=== PATIENT | female | born 1975 | race Caucasian/White ===

== ENCOUNTER 2017-03-12 10:48 | Emergency (ER) | payer SELFPAY ==
[2017-03-12 10:54] VITALS: TEMP 98.1
[2017-03-12] MEDS ORDERED: DIPH,PERTUS(ACELL)TETVAC-LF 0.5 ML VIAL IM ONE (12:14)
[2017-03-12] MEDS ORDERED: LIDOCAINE/EPINEPHR/TETRACAINE 5 ML BOTTLE TOPICAL ONE (12:14)
--- NOTE | 2017-03-12 12:17 | ED ---
Wound/Laceration HPI - General Chief Complaint: Wound/Laceration Stated Complaint: HEAD INJURY, LACERATION Time Seen by Provider: 03/12/17 11:59 Source: patient, RN notes reviewed Mode of arrival: wheelchair Limitations: no limitations - History of Present Illness Initial Comments: Patient is 41-year-old female presents to the emergency room for evaluation of scalp laceration. Patient states that she was moving tarp outside piece of wood fell and hit her on the top of the head. Patient denies loss of consciousness. Patient denies headache or dizziness. Patient denies changes in vision. Patient denies ear pain or ringing in ears. Patient denies neck pain. Patient denies tingling in her fingers and toes. Patient states she has laceration on top of her head. Patient states she does not remember when her last tetanus vaccine was given. Patient denies taking any blood thinners. Patient denies any other symptoms or complaints. Patient denies taking blood thinners. - Related Data Home Medications Medication Instructions Recorded Confirmed Dextroamphetamine/Amphetamine 30 mg PO BID 03/12/17 03/12/17 [Adderall] Allergies Allergy/AdvReac Type Severity Reaction Status Date / Time Penicillins Allergy Severe Rash/Hives Verified 03/12/17 10:54 Review of Systems ROS Statement: Those systems with pertinent positive or pertinent negative responses have been documented in the HPI. ROS Other: All systems not noted in ROS Statement are negative. Past Medical History Additional Past Medical History / Comment(s): migraines, difficult periods History of Any Multi-Drug Resistant Organisms: None Reported Past Surgical History: Tubal Ligation Additional Past Surgical History / Comment(s): hiatal hernia repair Past Anesthesia/Blood Transfusion Reactions: No Reported Reaction Past Psychological History: No Psychological Hx Reported Smoking Status: Current every day smoker Past Alcohol Use History: None Reported Additional Past Alcohol Use History / Comment(s): STARTED SMOKING AGE 14. QUIT SMOKING OCT 2014 Past Drug Use History: None Reported - Past Family History Mother Family Medical History: No Reported History General Exam - General Exam Comments Initial Comments: Sitting in exam room, no distress. Limitations: no limitations General appearance: alert, in no apparent distress Expanded Head exam: Present: laceration (3 cm laceration on the right frontol/parietal portion of the scalp) Eye exam: Present: normal appearance, PERRL, EOMI Pupils: Present: normal accommodation ENT exam: Present: normal exam Neck exam: Present: normal inspection Respiratory exam: Absent: respiratory distress Extremities exam: Present: normal inspection Back exam: Present: normal inspection Neurological exam: Present: alert, oriented X3, CN II-XII intact, normal gait Psychiatric exam: Present: normal affect, normal mood Skin exam: Present: warm, dry. Absent: rash Course Vital Signs 03/12/17 03/12/17 10:51 13:02 Temperature 98.1 F Pulse Rate 104 H 90 Respiratory 20 16 Rate Blood Pressure 133/74 132/74 O2 Sat by Pulse 98 99 Oximetry Procedures - Laceration Laceration #1 Consent Obtained: verbal consent Indication: laceration Site: scalp Size (cm): 3 Description: linear Depth: simple, single layer Size of Sutures: other (Oglesby) Number of Sutures: 3 Patient Tolerated Procedure: well, no complications Medical Decision Making - Medical Decision Making Patient is a 41-year-old female presents to the emergency room for evaluation of scalp laceration. Patient has no neuro deficits. Laceration irrigated. Patient updated on tetanus vaccine. Oglesby placed in laceration area. Patient states she understands everything that was discussed with her. Return parameters discussed. Case discussed Dr. Liz. Disposition Clinical Impression: Scalp laceration Disposition: HOME SELF-CARE Condition: Good Instructions: Laceration (ED), Staple Care (ED) Additional Instructions: Tylenol or Motrin as needed for pain. Please return in 10 days for staple removal. Please follow up with primary care provider in 1-2 days. If any new symptom arises or symptoms worsen, return to ER as soon as possible. Referrals: Jaylon Francisco DO [Primary Care Provider] - 1-2 days Time of Disposition: 12:55
[2017-03-12 13:05] VITALS: BP 132/74; PULSE 90; RESP 16
== END 2017-03-12 13:02 | disposition home or self-care (01) ==
LOC: EC 10:48
DX: S01.01XA Laceration without foreign body of scalp, initial encounter (principal); Z23 Encounter for immunization; F17.200 Nicotine dependence, unspecified, uncomplicated; Z79.899 Other long term (current) drug therapy; Z88.0 Allergy status to penicillin; W20.8XXA Other cause of strike by thrown, projected or falling object, initial encounter; Y92.009 Unspecified place in unspecified non-institutional (private) residence as the place of occurrence of the external cause
CPT/HCPCS: 12002; 90471; 90715; 99283

== ENCOUNTER → 2017-05-10 | Outpatient (CLI) | payer OTHER ==
--- NOTE | 2017-05-10 13:16 | MR ---
EXAMINATION TYPE: MR lumbar spine wo con DATE OF EXAM: 05/10/2017 COMPARISON: NONE HISTORY: Lumbar spasms and limited range of motion per order. Back pain for 6 months going down both legs per patient. TECHNIQUE: Multiplanar, multisequence imaging of the lumbar spine is performed without IV contrast. FINDINGS: Sagittal images of the lumbar spine show vertebral body heights and alignment to appear sat isfactory. There is disc desiccation L5-S1 level otherwise the intervertebral discs demonstrate willard l heights and hydration. No suspicious posterior disc herniations are seen on sagittal images The co nus medullaris is normal in position and signal ending at inferior L1 level. The bone marrow signal intensity is within normal limits. Minimal multilevel anterior spurring is present. Axial images show mild to moderate facet arthropathy bilaterally L4-L5 and L5-S1 level. Spinal canal is preserved and bilateral neural foramina are patent. Remainder lumbar spine is unremarkable. No bere picious retroperitoneal findings are seen. IMPRESSION: Some multilevel degenerative changes in lumbar spine as detailed above, no significant di sc herniation is seen to account for patient's bilateral radiculopathy type symptoms however.
== END | disposition home or self-care (01) ==
LOC: RADMRIMAIN 12:26
PROVIDERS: ATTEND Family Medicine
DX: M47.816 Spondylosis without myelopathy or radiculopathy, lumbar region (principal); M26.52 Limited mandibular range of motion
CPT/HCPCS: 72148

== ENCOUNTER → 2017-05-23 | Outpatient (CLI) | payer OTHER ==
--- NOTE | 2017-05-23 08:24 | MR ---
EXAMINATION TYPE: MR cervical spine wo con DATE OF EXAM: 05/23/2017 COMPARISON: NONE HISTORY: neck pain csp radiculopathy TECHNIQUE: Multiplanar, multisequence images of the cervical spine were acquired. C2-C3: No evidence for degenerative disc disease. No disc bulge/herniation or protrusion. No Canal stenosis. Foramina are patent bilaterally. C3-C4: No evidence for degenerative disc disease. No disc bulge/herniation or protrusion. No Canal stenosis. Foramina are patent bilaterally and only mildly narrowed. C4-C5: No evidence for degenerative disc disease. No disc bulge/herniation or protrusion. No Canal stenosis. Foramina are patent bilaterally. C5-C6: There is a right posterior paracentral subligamentous disc herniation causing mass effect on t he cervical cord. No significant foraminal encroachment. Mild central canal stenosis. C6-C7: Right posterior paracentral subligamentous disc herniation causes mass effect on the cervical cord. Smaller component is present in the left paracentral location also contacting the cervical cord . No definite foraminal encroachment. C7-T1: No evidence for degenerative disc disease. No disc bulge/herniation or protrusion. No Canal stenosis. Foramina are patent bilaterally. Cervical segments are intact. There is normal alignment. Cervical spinal cord is of normal signal. Craniovertebral junction relationships are within normal limits. IMPRESSION: Degenerative disc disease, disc herniations at 2 levels as described.
== END | disposition home or self-care (01) ==
LOC: RADMRIMAIN 07:33
PROVIDERS: ATTEND Family Medicine
DX: M50.20 Other cervical disc displacement, unspecified cervical region (principal); M50.30 Other cervical disc degeneration, unspecified cervical region
CPT/HCPCS: 72141

== ENCOUNTER 2018-06-16 20:09 | Emergency (ER) | payer OTHER ==
[2018-06-16] MEDS ORDERED: SODIUM CHLORIDE 0.9% 1,000 ML IV ONE ×2 (21:46)
--- NOTE | 2018-06-16 21:46 | ED ---
General Adult HPI - General Chief complaint: Dizziness Stated complaint: Fever/Dizzy Time Seen by Provider: 06/16/18 21:35 Source: patient Mode of arrival: wheelchair Limitations: no limitations - History of Present Illness Initial comments: Angela is a 42-year-old female who presents to the emergency department today for evaluation of multiple complaints. Patient reports that for the past 4 days she's had intermittent low-grade fevers, subjective fevers, chills, nausea , decreased by mouth intake and today developed light headedness. She reports that throughout the week her temperature has been between 99 and 100 , she's been treating this with by mouth ibuprofen and Tylenol with minimal improvement. She reports that yesterday she did not have a fever but today her fever spiked to 103.0 which is the highest it has ever been. Ibuprofen home and saw care at a urgent care where she was given a dose of Tylenol prior to being transferred to the ER for further evaluation. The patient reports that she's been feeling nauseated and had no appetite for the past 4 days, she states she believes she's lost approximately 10-15 pounds due to this. She reports that she's been attempting to drink plenty of water but has not been eating solid foods. She reports that due to a previous Dorita procedure she cannot vomit but has felt persistently nauseated. She has had some diarrhea but no constipation. No abdominal pain. She does report some dysuria and was told that the urgent care that she does have a urinary tract infection and is very dehydrated. Patient reports that today she was walking up her stairs when she began to feel very lightheaded and felt unsafe walking. She felt better when she laid down. It was at that time that she decided to seek care at the urgent care. Vertiginous symptoms, any room spinning around her, any tinnitus or hearing loss. She's never had a history of vertigo in the past. - Related Data Home Medications Medication Instructions Recorded Confirmed Dextroamphetamine/Amphetamine 30 mg PO BID 03/12/17 03/12/17 [Adderall] Previous Rx's Medication Instructions Recorded Sulfamethox-Tmp 800-160Mg [Bactrim 1 tab PO Q12HR 7 Days #14 tab 06/17/18 DS 800-160 mg] Allergies Allergy/AdvReac Type Severity Reaction Status Date / Time Penicillins Allergy Severe Rash/Hives Verified 06/16/18 20:49 Review of Systems ROS Statement: Those systems with pertinent positive or pertinent negative responses have been documented in the HPI. ROS Other: All systems not noted in ROS Statement are negative. Past Medical History Past Medical History: No Reported History Additional Past Medical History / Comment(s): migraines, difficult periods, neck pain- bone spurs History of Any Multi-Drug Resistant Organisms: None Reported Past Surgical History: Hernia Repair, Hysterectomy, Tubal Ligation Additional Past Surgical History / Comment(s): hiatal hernia repair Past Anesthesia/Blood Transfusion Reactions: No Reported Reaction Past Psychological History: ADD/ADHD Smoking Status: Never smoker Past Alcohol Use History: Occasional Past Drug Use History: None Reported - Past Family History Mother Family Medical History: No Reported History General Exam Limitations: no limitations General appearance: alert, in no apparent distress Head exam: Present: atraumatic, normocephalic Eye exam: Present: PERRL, EOMI ENT exam: Present: normal exam, mucous membranes moist Neck exam: Present: full ROM Respiratory exam: Absent: respiratory distress Cardiovascular Exam: Present: regular rate, normal rhythm, normal heart sounds. Absent: systolic murmur, diastolic murmur GI/Abdominal exam: Present: soft. Absent: distended Rectal exam: Present: deferred Extremities exam: Present: full ROM, normal capillary refill. Absent: pedal edema Neurological exam: Present: alert, oriented X3 Psychiatric exam: Present: normal affect, normal mood Skin exam: Present: warm, dry, intact Course Vital Signs 06/16/18 06/16/18 20:46 23:55 Temperature 98.6 F Pulse Rate 86 68 Respiratory 18 Rate Blood Pressure 95/69 O2 Sat by Pulse 97 97 Oximetry - Reevaluation(s) Reevaluation #1: reevaluated, feeling much better after IV fluids, potassium is infusing. Patient states that she has a history of low potassium in the past. 06/17/18 01:47 Medical Decision Making - Medical Decision Making The patient was seen and evaluated, history is obtained from the patient and her significant other at the bedside Patient with low-grade fever throughout the week, today experiencing fever of 103 Fahrenheit, lightheadedness, evaluation at outside facility revealed urinary tract infection and dehydration and she was referred to the emergency department for On exam the patient does appear mildly dehydrated, her mucous membranes are moist but tacky, she has a urine sample at bedside which is dark in color Labs and IV fluids were ordered Labs reveal significant hypokalemia, by mouth and IV replacement were ordered Urinalysis consistent with a significant urinary tract infection - IV Rocephin was ordered All results were discussed with the patient, patient reports a history of low potassium in the past, is aware of what foods are high in potassium and that she needs to have them to her diet including but not limited to bananas and sweet potatoes. I advised the patient we will discharge her home on oral act from for treatment of her urinary tract infection this is a different class of medication and the Rocephin she received the IV so the urinary tract infection should be appropriately treated. She needs follow-up with her PCP at the end of the course of antibiotics for repeat urinalysis to ensure complete clearance of the UTI. All questions pertaining to care were answered to the best my ability. Return parameters were discussed and patient was discharged home in stable condition. - Lab Data Result diagrams: 06/16/18 22:14 06/16/18 22:14 Lab Results 06/16/18 06/16/18 06/16/18 Range/Units 22:14 22:14 22:14 WBC 15.3 H (3.8-10.6) k/uL RBC 4.20 (3.80-5.40) m/uL Hgb 12.4 (11.4-16.0) gm/dL Hct 36.9 (34.0-46.0) % MCV 87.9 (80.0-100.0) fL MCH 29.6 (25.0-35.0) pg MCHC 33.6 (31.0-37.0) g/dL RDW 12.9 (11.5-15.5) % Plt Count 284 (150-450) k/uL Neutrophils % 78 % Lymphocytes % 12 % Monocytes % 6 % Eosinophils % 1 % Basophils % 1 % Neutrophils # 11.8 H (1.3-7.7) k/uL Lymphocytes # 1.8 (1.0-4.8) k/uL Monocytes # 0.9 (0-1.0) k/uL Eosinophils # 0.1 (0-0.7) k/uL Basophils # 0.1 (0-0.2) k/uL Sodium 133 L (137-145) mmol/L Potassium 2.3 L* (3.5-5.1) mmol/L Chloride 91 L (98-107) mmol/L Carbon Dioxide 30 (22-30) mmol/L Anion Gap 12 mmol/L BUN 16 (7-17) mg/dL Creatinine 0.90 (0.52-1.04) mg/dL Est GFR (CKD-EPI)AfAm >90 (>60 ml/min/1.73 sqM) Est GFR (CKD-EPI)NonAf 81 (>60 ml/min/1.73 sqM) Glucose 126 H (74-99) mg/dL Calcium 8.6 (8.4-10.2) mg/dL Urine Color Yellow Urine Appearance Cloudy H (Clear) Urine pH 6.0 (5.0-8.0) Ur Specific [place] 1.014 (1.001-1.035) Urine Protein 1+ H (Negative) Urine Glucose (UA) Negative (Negative) Urine Ketones Negative (Negative) Urine Blood Small H (Negative) Urine Nitrite Negative (Negative) Urine Bilirubin Negative (Negative) Urine Urobilinogen <2.0 (<2.0) mg/dL Ur Leukocyte Esterase Large H (Negative) Urine RBC 6 H (0-5) /hpf Urine WBC 79 H (0-5) /hpf Urine WBC Clumps Occasional H (None) /hpf Ur Squamous Epith Cells 17 H (0-4) /hpf Urine Bacteria Moderate H (None) /hpf Hyaline Casts 115 H (0-2) /lpf Urine Mucus Few H (None) /hpf Disposition Clinical Impression: UTI (urinary tract infection), Dehydration, Hypokalemia Disposition: HOME SELF-CARE Condition: Good Instructions: Dehydration (ED), Urinary Tract Infection in Women (ED), Hypokalemia (ED) Prescriptions: Sulfamethox-Tmp 800-160Mg [Bactrim DS 800-160 mg] 1 tab PO Q12HR 7 Days #14 tab Is patient prescribed a controlled substance at d/c from ED?: No Referrals: Jaylon Francisco DO [Primary Care Provider] - 1-2 days Time of Disposition: 01:34
[2018-06-16 22:25] LABS: Basophils # (A) 0.1 k/uL (0-0.2); Basophils % (A) 1 %; Eosinophils # (A) 0.1 k/uL (0-0.7); Eosinophils % (A) 1 %; HCT 36.9 % (34.0-46.0); HGB 12.4 gm/dL (11.4-16.0); Lymphocytes # (A) 1.8 k/uL (1.0-4.8); Lymphocytes % (A) 12 %; MCH 29.6 pg (25.0-35.0); MCHC 33.6 g/dL (31.0-37.0); MCV 87.9 fL (80.0-100.0); Mean Platelet Volume 6.8; Monocytes # (A) 0.9 k/uL (0-1.0); Monocytes % (A) 6 %; Neutrophils # (A) 11.8 k/uL (1.3-7.7); Neutrophils % (A) 78 %; Platelet Count 284 k/uL (150-450); RDW 12.9 % (11.5-15.5); WBC 15.3 k/uL (3.8-10.6)
[2018-06-16 22:43] LABS: Anion Gap 12 mmol/L; Blood Urea Nitrogen 16 mg/dL (7-17); Calcium 8.6 mg/dL (8.4-10.2); Carbon Dioxide 30 mmol/L (22-30); Chloride 91 mmol/L (98-107); Glucose 126 mg/dL (74-99); Sodium 133 mmol/L (137-145)
[2018-06-16 23:07] LABS: Appearance,Urine Cloudy (Clear); Bacteria,Urine Moderate /hpf; Bilirubin,Urine Negative (Negative); Blood,Urine Small (Negative); Color,Urine Yellow; Glucose,Urine (UA) Negative (Negative); Hyaline Casts,Urine 115 /lpf (0-2); Ketones,Urine Negative (Negative); Leukocyte Esterase,Urine Large (Negative); Mucus,Urine Few /hpf; Nitrite,Urine Negative (Negative); Protein,Urine 1+ (Negative); RBC,Urine 6 /hpf (0-5); Specific Gravity,Urine 1.014 (1.001-1.035); Squamous Epithelial Cell,Urine 17 /hpf (0-4); Urobilinogen,Urine <2.0 mg/dL (<2.0); WBC,Urine 79 /hpf (0-5)
[2018-06-16 23:28] LABS: Potassium 2.3 mmol/L (3.5-5.1)
[2018-06-17] MEDS ORDERED: cefTRIAXone IN SWFI 1,000 MG/10 ML SYRINGE IVP STA (00:23)
[2018-06-17] MEDS ORDERED: POTASSIUM BICARBONATE/CIT AC 20 MEQ TABLET.EFF PO ONE (00:24)
[2018-06-17] MEDS ORDERED: POTASSIUM CHLORIDE 10 MEQ in WATER FOR INJECTION 1 100ML.BAG IVPB STA (00:24)
[2018-06-17] MEDS ORDERED: SODIUM CHLORIDE 0.9% 1,000 ML IV SCH (00:30)
[2018-06-17 04:03] VITALS: BP 106/68; PULSE 80; RESP 18; TEMP 97.9
== END 2018-06-17 04:03 | disposition home or self-care (01) ==
LOC: EC 20:09
DX: E87.6 Hypokalemia (principal); N39.0 Urinary tract infection, site not specified; E86.0 Dehydration; R11.0 Nausea; R63.4 Abnormal weight loss; R19.7 Diarrhea, unspecified; F90.9 Attention-deficit hyperactivity disorder, unspecified type; Z79.899 Other long term (current) drug therapy; Z88.0 Allergy status to penicillin
CPT/HCPCS: 36415; 80048; 85025; 81001; 87086; 99284; 96365; 96375; 96361 ×4; J0696; J3480

== ENCOUNTER 2018-08-08 21:57 | Emergency (ER) | payer OTHER ==
[2018-08-08] MEDS ORDERED: HYDROcodone/APAP 7.5-325MG 1 EACH TAB PO ONE (22:45)
[2018-08-08] MEDS ORDERED: DIAZEPAM 2 MG TAB PO STA (22:45)
[2018-08-08] MEDS ORDERED: METHOCARBAMOL 500 MG TAB PO STA (22:45)
[2018-08-08 22:50] LABS: Basophils # (A) 0.1 k/uL (0-0.2); Basophils % (A) 1 %; Eosinophils # (A) 0.2 k/uL (0-0.7); Eosinophils % (A) 2 %; HCT 35.2 % (34.0-46.0); Lymphocytes # (A) 2.8 k/uL (1.0-4.8); Lymphocytes % (A) 24 %; MCH 30.1 pg (25.0-35.0); MCHC 34.2 g/dL (31.0-37.0); Mean Platelet Volume 6.4; Monocytes # (A) 0.7 k/uL (0-1.0); Monocytes % (A) 6 %; Neutrophils # (A) 7.7 k/uL (1.3-7.7); Neutrophils % (A) 67 %; Platelet Count 340 k/uL (150-450); RDW 12.9 % (11.5-15.5); WBC 11.6 k/uL (3.8-10.6)
[2018-08-08 23:03] LABS: ALT 31 U/L (9-52); AST 22 U/L (14-36); Albumin 3.9 g/dL (3.5-5.0); Alkaline Phosphatase 50 U/L (38-126); Anion Gap 8 mmol/L; Blood Urea Nitrogen 9 mg/dL (7-17); Calcium 8.8 mg/dL (8.4-10.2); Carbon Dioxide 28 mmol/L (22-30); Chloride 103 mmol/L (98-107); Glucose 96 mg/dL (74-99); Potassium 3.7 mmol/L (3.5-5.1); Sodium 139 mmol/L (137-145); Total Bilirubin 0.5 mg/dL (0.2-1.3)
--- NOTE | 2018-08-08 23:44 | ED ---
General Adult HPI - General Source: patient, family, RN notes reviewed Mode of arrival: wheelchair Limitations: no limitations <Mike Deal - Last Filed: 08/09/18 00:28> <Rachelle Woodard - Last Filed: 08/09/18 00:40> - General Chief complaint: Extremity Problem,Nontraumatic Stated complaint: Edema Time Seen by Provider: 08/08/18 22:18 - History of Present Illness Initial comments: Patient's a 43-year-old female presented to the emergency room status post neck surgery, 3 days, the chief complaint of bilateral foot swelling. Patient does admit that she's noticed some swelling down to her feet. She states she had a difficult time putting on her slippers today. She states per her discharge instructions she was advised come in the hospital if there was any swelling in her legs. She denies any pain. Denies any injury. She states there is no other symptoms after surgery. Denies any swelling to any other areas. Patient denies any recent fever, chills, shortness of breath, chest pain, back pain, abdominal pain, nausea or vomiting, numbness or tingling, headaches or visual changes, or any other complaints. (Mike Deal) - Related Data Home Medications Medication Instructions Recorded Confirmed Dextroamphetamine/Amphetamine 30 mg PO BID 03/12/17 03/12/17 [Adderall] Previous Rx's Medication Instructions Recorded Sulfamethox-Tmp 800-160Mg [Bactrim 1 tab PO Q12HR 7 Days #14 tab 06/17/18 DS 800-160 mg] Allergies Allergy/AdvReac Type Severity Reaction Status Date / Time Penicillins Allergy Severe Rash/Hives Verified 08/08/18 22:02 Review of Systems ROS Other: All systems not noted in ROS Statement are negative. <Mike Deal - Last Filed: 08/09/18 00:28> ROS Other: All systems not noted in ROS Statement are negative. <Rachelle Woodard - Last Filed: 08/09/18 00:40> ROS Statement: Those systems with pertinent positive or pertinent negative responses have been documented in the HPI. Past Medical History Past Medical History: No Reported History Additional Past Medical History / Comment(s): migraines, difficult periods, neck pain- bone spurs History of Any Multi-Drug Resistant Organisms: None Reported Past Surgical History: Back Surgery, Hernia Repair, Hysterectomy, Tubal Ligation Additional Past Surgical History / Comment(s): hiatal hernia repair Past Anesthesia/Blood Transfusion Reactions: No Reported Reaction Past Psychological History: ADD/ADHD Smoking Status: Former smoker Past Alcohol Use History: Occasional Past Drug Use History: None Reported - Past Family History Mother Family Medical History: No Reported History <Mike Deal - Last Filed: 08/09/18 00:28> General Exam Limitations: no limitations <Mike Deal - Last Filed: 08/09/18 00:28> <Rachelle Woodard - Last Filed: 08/09/18 00:40> - General Exam Comments Initial Comments: General: The patient is awake and alert, in no distress, and does not appear acutely ill. Eye: Pupils are equal, round and reactive to light. Extra-ocular movements are intact. No nystagmus. There is normal conjunctiva bilaterally. No signs of icterus. Ears, nose, mouth and throat: There are moist mucous membranes and no oral lesions. Neck: The neck is supple, there is no tenderness or JVD. Cardiovascular: There is a regular rate and rhythm. No murmur, rub or gallop is appreciated. Respiratory: Lungs are clear to auscultation, respirations are non-labored, breath sounds are equal. No wheezes, stridor, rales, or rhonchi. Musculoskeletal: Normal ROM, no tenderness. Sensation intact. Strength 5/5. Pulses equal bilaterally 2+. No pitting edema. Negative Homans. Neurological: A&O x 3. CN II-XII intact, There are no obvious motor or sensory deficits. Coordination appears grossly intact. Speech is normal. Skin: Skin is warm and dry and no rashes or lesions are noted. Psychiatric: Cooperative, appropriate mood & affect, normal judgment. (Mike Deal) Vital Signs 08/08/18 08/08/18 21:58 22:37 Temperature 99.1 F 98.6 F Pulse Rate 108 H 97 Respiratory 20 20 Rate Blood Pressure 161/103 162/89 O2 Sat by Pulse 97 97 Oximetry Medical Decision Making - Lab Data Result diagrams: 08/08/18 22:20 08/08/18 22:20 <Mike Deal - Last Filed: 08/09/18 00:28> - Lab Data Result diagrams: 08/08/18 22:20 08/08/18 22:20 <Rachelle Woodard - Last Filed: 08/09/18 00:40> - Medical Decision Making Patient reexamined at this time shows no signs of distress she did have recent surgery just 3 days ago to the cervical spine. Patient has no pain to the legs. There is no shortness breath or difficulty breathing. Patient ultrasound of the lower trunk is bilaterally was negative for any evidence of DVT. There is no pitting edema. BNP was negative. Remaining blood work was Reviewed. At this time patient is advised to elevate her legs. Advised to follow-up with the surgeon and family physician this coming week. Advised return for any other concerns (Mike Deal) I was available for consultation in the emergency department. The history and physical exam were done by the midlevel provider. I was consulted for this patient's care. I reviewed the case with the midlevel provider and based on their presentation of the patient, I agree with the assessment, medical decision making and plan of care as documented. (Rachelle Woodard) - Lab Data Lab Results 08/08/18 08/08/18 08/08/18 Range/Units 22:20 22:20 22:20 WBC 11.6 H (3.8-10.6) k/uL RBC 4.00 (3.80-5.40) m/uL Hgb 12.0 (11.4-16.0) gm/dL Hct 35.2 (34.0-46.0) % MCV 88.0 (80.0-100.0) fL MCH 30.1 (25.0-35.0) pg MCHC 34.2 (31.0-37.0) g/dL RDW 12.9 (11.5-15.5) % Plt Count 340 (150-450) k/uL Neutrophils % 67 % Lymphocytes % 24 % Monocytes % 6 % Eosinophils % 2 % Basophils % 1 % Neutrophils # 7.7 (1.3-7.7) k/uL Lymphocytes # 2.8 (1.0-4.8) k/uL Monocytes # 0.7 (0-1.0) k/uL Eosinophils # 0.2 (0-0.7) k/uL Basophils # 0.1 (0-0.2) k/uL Sodium 139 (137-145) mmol/L Potassium 3.7 (3.5-5.1) mmol/L Chloride 103 (98-107) mmol/L Carbon Dioxide 28 (22-30) mmol/L Anion Gap 8 mmol/L BUN 9 (7-17) mg/dL Creatinine 0.58 (0.52-1.04) mg/dL Est GFR (CKD-EPI)AfAm >90 (>60 ml/min/1.73 sqM) Est GFR (CKD-EPI)NonAf >90 (>60 ml/min/1.73 sqM) Glucose 96 (74-99) mg/dL Calcium 8.8 (8.4-10.2) mg/dL Total Bilirubin 0.5 (0.2-1.3) mg/dL AST 22 (14-36) U/L ALT 31 (9-52) U/L Alkaline Phosphatase 50 (38-126) U/L NT-Pro-B Natriuret Pep 184 pg/mL Total Protein 7.0 (6.3-8.2) g/dL Albumin 3.9 (3.5-5.0) g/dL Disposition Is patient prescribed a controlled substance at d/c from ED?: No Time of Disposition: 00:29 <Mike Deal - Last Filed: 08/09/18 00:28> <Rachelle Woodard - Last Filed: 08/09/18 00:40> Clinical Impression: Leg edema Disposition: HOME SELF-CARE Condition: Good Instructions: Leg Edema (ED) Additional Instructions: Please elevate legs as discussed and follow-up with the family doctor and surgeon this coming week. Please return to emergency room for any other concerns. Referrals: Jaylon Francisco DO [Primary Care Provider] - 1-2 days
--- NOTE | 2018-08-09 00:15 | US ---
EXAMINATION TYPE: US venous doppler duplex LE BI DATE OF EXAM: 08/09/2018 12:08 AM COMPARISON: NONE CLINICAL HISTORY: Pain. SIDE PERFORMED: Bilateral TECHNIQUE: The lower extremity deep venous system is examined utilizing real time linear array sonog emma with graded compression, doppler sonography and color-flow sonography. VESSELS IMAGED: External Iliac Vein (EIV) Common Femoral Vein Deep Femoral Vein Greater Saphenous Vein * Femoral Vein Popliteal Vein Small Saphenous Vein * Proximal Calf Veins (* superficial vessels) Severely limited due to pt unable to lay flat has to be in an upright poistion. Right Leg: Negative for DVT Left Leg: Negative for DVT IMPRESSION: Negative exam. No evidence of deep venous thrombosis in both legs.
[2018-08-09 00:41] VITALS: BP 163/74; PULSE 94; RESP 16; TEMP 98.5
== END 2018-08-09 00:42 | disposition home or self-care (01) ==
LOC: EC 21:57
DX: R60.0 Localized edema (principal); F90.9 Attention-deficit hyperactivity disorder, unspecified type; Z79.899 Other long term (current) drug therapy; Z88.0 Allergy status to penicillin; Z87.891 Personal history of nicotine dependence
CPT/HCPCS: 36415; 80053; 83880; 85025; 93005; 93970; 99284

== ENCOUNTER → 2019-11-05 | Outpatient (CLI) | payer OTHER ==
--- NOTE | 2019-11-05 12:01 | ECHOF ---
Referral Reason:R07.89 Atypical chest pain MEASUREMENTS -------- HEIGHT: 175.3 cm WEIGHT: 125.2 kg BP: 129/87 RVIDd: 3.0 cm (< 3.3) IVSd: 1.2 cm (0.6 - 1.1) LVIDd: 4.0 cm (3.9 - 5.3) LVPWd: 1.2 cm (0.6 - 1.1) IVSs: 1.4 cm LVIDs: 2.8 cm LVPWs: 1.5 cm LA Diam: 3.8 cm (2.7 - 3.8) LAESV Index (A-L): 21.75 ml/m Ao Diam: 3.1 cm (2.0 - 3.7) AV Cusp: 2.4 cm (1.5 - 2.6) MV EXCURSION: 17.701 mm (> 18.000) MV EF SLOPE: 114 mm/s (70 - 150) EPSS: 0.6 cm MV E Edison: 0.87 m/s MV DecT: 156 ms MV A Edison: 0.68 m/s MV E/A Ratio: 1.29 RAP: 5.00 mmHg RVSP: 28.31 mmHg TAPSE: 22.26 mm FINDINGS -------- Sinus rhythm. This was a technically good study. The left ventricular size is normal. There is borderline concentric left ventricular hypertrophy. Overall left ventricular systolic function is normal with, an EF between 60 - 65 %. The right ventricle is normal in size. Normal LA size by volume 22+/-6 ml/m2. The right atrium is normal in size. Interatrial and interventricular septum intact. The aortic valve is trileaflet and appears structurally normal. The mitral valve is normal. Mild tricuspid regurgitation present. Right ventricular systolic pressure is normal at < 35 mmHg. Trace/mild (physiologic) pulmonic regurgitation. The aortic root size is normal. Normal inferior vena cava with normal inspiratory collapse consistent with estimated right atrial pre ssure of 5 mmHg. There is no pericardial effusion. CONCLUSIONS -------- 1. Sinus rhythm. 2. This was a technically good study. 3. The left ventricular size is normal. 4. There is borderline concentric left ventricular hypertrophy. 5. Overall left ventricular systolic function is normal with, an EF between 60 - 65 %. 6. The right ventricle is normal in size. 7. Normal LA size by volume 22+/-6 ml/m2. 8. The right atrium is normal in size. 9. Interatrial and interventricular septum intact. 10. The aortic valve is trileaflet and appears structurally normal. 11. The mitral valve is normal. 12. Mild tricuspid regurgitation present. 13. Right ventricular systolic pressure is normal at < 35 mmHg. 14. Trace/mild (physiologic) pulmonic regurgitation. 15. The aortic root size is normal. 16. Normal inferior vena cava with normal inspiratory collapse consistent with estimated right atrial pressure of 5 mmHg. 17. There is no pericardial effusion. [employer]ER: Aracelis Ashley RDCS
--- NOTE | 2019-11-05 12:41 | EST ---
EXERCISE STRESS DATE OF SERVICE: 11/05/2019 AGE: 44 SEX: Female HT: 69" WT: 276 pounds PROTOCOL: Abudllahi STAGE: III DURATION OF EXERCISE: 8 minutes HEART RATE REST: 89 BLOOD PRESSURE REST: 129/87 MAXIMUM HEART RATE ACHIEVED: 179 MAXIMUM BLOOD PRESSURE: 243/35 85% MPHR: 151 100% MPHR: 178 METS: 9.7 INDICATIONS: Hypertension. CLINICAL INFORMATION: The patient was exercised for a total period of 8 minutes. Peak heart rate of 179 was achieved. Maximum blood pressure of 243/35 mmHg was noted. Resting EKG shows a normal sinus rhythm with normal NJ interval and QRS duration and normal ST-T waves. No ST- segment depression suggestive of ischemia is noted. No dysrhythmias are noted. FINAL IMPRESSION: This exercise test is not suggestive of ischemia. Patient's exercise tolerance is normal. The patient did not complain of any chest pain during the test. MMODL / IJN: [id number] /
== END | disposition home or self-care (01) ==
LOC: RADNMMAIN 08:17
PROVIDERS: ATTEND Family Medicine
DX: I08.8 Other rheumatic multiple valve diseases (principal); R07.89 Other chest pain
CPT/HCPCS: 93017; 93306

== ENCOUNTER 2020-08-13 12:12 | Emergency (ER) | payer OTHER ==
[2020-08-13] MEDS ORDERED: SODIUM CHLORIDE 0.9% 1,000 ML IV STA ×2 (12:30)
[2020-08-13] MEDS ORDERED: SODIUM CHLORIDE 0.9% 500 ML 500 ML IV STA (12:30)
[2020-08-13 12:38] VITALS: RESP 18
[2020-08-13] MEDS ORDERED: LABETALOL 5 MG/ML VIAL MDV IVP STA (13:02)
--- NOTE | 2020-08-13 13:02 | ED ---
Dizziness HPI - General Chief Complaint: Dizziness Stated Complaint: palpitations, near syncope Time Seen by Provider: 08/13/20 12:28 Source: patient, RN notes reviewed, old records reviewed Mode of arrival: ambulatory Limitations: no limitations - History of Present Illness Initial Comments: This is a 45-year-old female DF she presents today for evaluation regards to dizziness lightheadedness rapid heart rate feels like she may pass out. Patient's very sweaty does not feel well symptoms began at work tonight. No prior history of similar issue. No new medications no change in medications no recent fever cough or congestion no nausea vomiting or diarrhea no recent medication or drug abuse MD Complaint: dizziness, near syncope -: hour(s) Timing: sudden onset Description: lightheadedness, near-syncope History of Same: No History of Trauma: No Severity: severe Worsens With: nothing Associated Symptoms: shortness of breath, weakness - Related Data Home Medications Medication Instructions Recorded Confirmed Dextroamphetamine/Amphetamine 30 mg PO BID 03/12/17 03/12/17 [Adderall] Previous Rx's Medication Instructions Recorded Sulfamethox-Tmp 800-160Mg [Bactrim 1 tab PO Q12HR 7 Days #14 tab 06/17/18 DS 800-160 mg] Metoprolol Tartrate 25 mg PO BID #60 tab 08/13/20 Allergies Allergy/AdvReac Type Severity Reaction Status Date / Time Penicillins Allergy Severe Rash/Hives Verified 08/13/20 12:31 Review of Systems ROS Statement: Those systems with pertinent positive or pertinent negative responses have been documented in the HPI. ROS Other: All systems not noted in ROS Statement are negative. Past Medical History Past Medical History: No Reported History Additional Past Medical History / Comment(s): migraines, difficult periods, neck pain- bone spurs History of Any Multi-Drug Resistant Organisms: None Reported Past Surgical History: Back Surgery, Hernia Repair, Hysterectomy, Tubal Ligation Additional Past Surgical History / Comment(s): hiatal hernia repair Past Anesthesia/Blood Transfusion Reactions: No Reported Reaction Past Psychological History: ADD/ADHD Smoking Status: Former smoker Past Alcohol Use History: Occasional Past Drug Use History: None Reported - Past Family History Mother Family Medical History: No Reported History General Exam Limitations: no limitations General appearance: alert, in no apparent distress, anxious Head exam: Present: atraumatic, normocephalic, normal inspection Eye exam: Present: normal appearance, PERRL, EOMI. Absent: scleral icterus, conjunctival injection, periorbital swelling ENT exam: Present: normal exam, mucous membranes moist Neck exam: Present: normal inspection. Absent: tenderness, meningismus, lymphadenopathy Respiratory exam: Present: normal lung sounds bilaterally. Absent: respiratory distress, wheezes, rales, rhonchi, stridor Cardiovascular Exam: Present: tachycardia, irregular rhythm, normal heart sounds. Absent: systolic murmur, diastolic murmur, rubs, gallop, clicks GI/Abdominal exam: Present: soft, normal bowel sounds. Absent: distended, tenderness, guarding, rebound, rigid Extremities exam: Present: normal inspection, full ROM, normal capillary refill. Absent: tenderness, pedal edema, joint swelling, calf tenderness Back exam: Present: normal inspection Neurological exam: Present: alert, oriented X3, CN II-XII intact Psychiatric exam: Present: normal affect, normal mood Skin exam: Present: warm, dry, intact, normal color. Absent: rash Course Vital Signs 08/13/20 08/13/20 08/13/20 12:28 12:30 12:45 Temperature 97 F L Pulse Rate 125 H 93 96 Respiratory 24 18 18 Rate Blood Pressure 68/48 96/66 101/57 O2 Sat by Pulse 98 100 100 Oximetry - Reevaluation(s) Reevaluation #1: 08/13/20 14:10 Medical records reviewed Reevaluation #2: 08/13/20 14:10 Patient presented in significant SVT worked at bedside with vaginal maneuvers for about 30 plus minutes in symptoms did improve Reevaluation #3: 08/13/20 14:10 Spoke patient regarding results and findings, questions answered, will prefer d ischarged over observation EKG Findings - EKG Comments: EKG Findings:: EKG shows SVT rate of 180 QRS 82 QTC 464. Successful Vagal man euver. EKG shows sinus rhythm 85 HI 182 QRS 84 QTc 440 Medical Decision Making - Medical Decision Making 45 female to ER with first episode of SVT. Symptoms resolved here in the ER will start on low-dose beta kulwinder and discharged home - Lab Data Result diagrams: 08/13/20 12:41 08/13/20 12:41 Lab Results 08/13/20 08/13/20 08/13/20 Range/Units 12:41 12:41 12:41 WBC 9.2 (3.8-10.6) k/uL RBC 4.73 (3.80-5.40) m/uL Hgb 14.6 (11.4-16.0) gm/dL Hct 43.4 (34.0-46.0) % MCV 91.7 (80.0-100.0) fL MCH 30.8 (25.0-35.0) pg MCHC 33.6 (31.0-37.0) g/dL RDW 12.0 (11.5-15.5) % Plt Count 349 (150-450) k/uL Neutrophils % 64 % Lymphocytes % 29 % Monocytes % 3 % Eosinophils % 2 % Basophils % 1 % Neutrophils # 5.9 (1.3-7.7) k/uL Lymphocytes # 2.7 (1.0-4.8) k/uL Monocytes # 0.3 (0-1.0) k/uL Eosinophils # 0.2 (0-0.7) k/uL Basophils # 0.1 (0-0.2) k/uL PT 9.9 (9.0-12.0) sec INR 0.9 (<1.2) APTT 23.9 (22.0-30.0) sec D-Dimer 0.34 (<0.60) mg/L FEU Sodium (137-145) mmol/L Potassium (3.5-5.1) mmol/L Chloride (98-107) mmol/L Carbon Dioxide (22-30) mmol/L Anion Gap mmol/L BUN (7-17) mg/dL Creatinine (0.52-1.04) mg/dL Est GFR (CKD-EPI)AfAm (>60 ml/min/1.73 sqM) Est GFR (CKD-EPI)NonAf (>60 ml/min/1.73 sqM) Glucose (74-99) mg/dL Plasma Lactic Acid Bret (0.7-2.0) mmol/L Calcium (8.4-10.2) mg/dL Phosphorus (2.5-4.5) mg/dL Magnesium (1.6-2.3) mg/dL Total Bilirubin (0.2-1.3) mg/dL AST (14-36) U/L ALT (4-34) U/L Alkaline Phosphatase (38-126) U/L Creatine Kinase (30-135) U/L Troponin I (0.000-0.034) ng/mL NT-Pro-B Natriuret Pep pg/mL Total Protein (6.3-8.2) g/dL Albumin (3.5-5.0) g/dL TSH (0.465-4.680) mIU/L Urine Color Yellow Urine Appearance Cloudy H (Clear) Urine pH 6.0 (5.0-8.0) Ur Specific [place] 1.020 (1.001-1.035) Urine Protein 1+ H (Negative) Urine Glucose (UA) Negative (Negative) Urine Ketones Negative (Negative) Urine Blood Negative (Negative) Urine Nitrite Negative (Negative) Urine Bilirubin Negative (Negative) Urine Urobilinogen <2.0 (<2.0) mg/dL Ur Leukocyte Esterase Trace H (Negative) Urine RBC 1 (0-5) /hpf Urine WBC 3 (0-5) /hpf Ur Squamous Epith Cells 16 H (0-4) /hpf Urine Bacteria Moderate H (None) /hpf Hyaline Casts 4 H (0-2) /lpf Urine Mucus Few H (None) /hpf 08/13/20 08/13/20 08/13/20 Range/Units 12:41 12:41 12:41 WBC (3.8-10.6) k/uL RBC (3.80-5.40) m/uL Hgb (11.4-16.0) gm/dL Hct (34.0-46.0) % MCV (80.0-100.0) fL MCH (25.0-35.0) pg MCHC (31.0-37.0) g/dL RDW (11.5-15.5) % Plt Count (150-450) k/uL Neutrophils % % Lymphocytes % % Monocytes % % Eosinophils % % Basophils % % Neutrophils # (1.3-7.7) k/uL Lymphocytes # (1.0-4.8) k/uL Monocytes # (0-1.0) k/uL Eosinophils # (0-0.7) k/uL Basophils # (0-0.2) k/uL PT (9.0-12.0) sec INR (<1.2) APTT (22.0-30.0) sec D-Dimer (<0.60) mg/L FEU Sodium 139 (137-145) mmol/L Potassium 4.2 (3.5-5.1) mmol/L Chloride 105 (98-107) mmol/L Carbon Dioxide 24 (22-30) mmol/L Anion Gap 10 mmol/L BUN 14 (7-17) mg/dL Creatinine 0.92 (0.52-1.04) mg/dL Est GFR (CKD-EPI)AfAm 89 (>60 ml/min/1.73 sqM) Est GFR (CKD-EPI)NonAf 77 (>60 ml/min/1.73 sqM) Glucose 161 H (74-99) mg/dL Plasma Lactic Acid Bret 3.1 H* (0.7-2.0) mmol/L Calcium 10.1 (8.4-10.2) mg/dL Phosphorus 4.5 (2.5-4.5) mg/dL Magnesium 1.8 (1.6-2.3) mg/dL Total Bilirubin 0.4 (0.2-1.3) mg/dL AST 24 (14-36) U/L ALT 18 (4-34) U/L Alkaline Phosphatase 73 (38-126) U/L Creatine Kinase 129 (30-135) U/L Troponin I <0.012 (0.000-0.034) ng/mL NT-Pro-B Natriuret Pep pg/mL Total Protein 7.8 (6.3-8.2) g/dL Albumin 4.7 (3.5-5.0) g/dL TSH 1.860 (0.465-4.680) mIU/L Urine Color Urine Appearance (Clear) Urine pH (5.0-8.0) Ur Specific [place] (1.001-1.035) Urine Protein (Negative) Urine Glucose (UA) (Negative) Urine Ketones (Negative) Urine Blood (Negative) Urine Nitrite (Negative) Urine Bilirubin (Negative) Urine Urobilinogen (<2.0) mg/dL Ur Leukocyte Esterase (Negative) Urine RBC (0-5) /hpf Urine WBC (0-5) /hpf Ur Squamous Epith Cells (0-4) /hpf Urine Bacteria (None) /hpf Hyaline Casts (0-2) /lpf Urine Mucus (None) /hpf 10/18/20 Range/Units 12:41 WBC (3.8-10.6) k/uL RBC (3.80-5.40) m/uL Hgb (11.4-16.0) gm/dL Hct (34.0-46.0) % MCV (80.0-100.0) fL MCH (25.0-35.0) pg MCHC (31.0-37.0) g/dL RDW (11.5-15.5) % Plt Count (150-450) k/uL Neutrophils % % Lymphocytes % % Monocytes % % Eosinophils % % Basophils % % Neutrophils # (1.3-7.7) k/uL Lymphocytes # (1.0-4.8) k/uL Monocytes # (0-1.0) k/uL Eosinophils # (0-0.7) k/uL Basophils # (0-0.2) k/uL PT (9.0-12.0) sec INR (<1.2) APTT (22.0-30.0) sec D-Dimer (<0.60) mg/L FEU Sodium (137-145) mmol/L Potassium (3.5-5.1) mmol/L Chloride (98-107) mmol/L Carbon Dioxide (22-30) mmol/L Anion Gap mmol/L BUN (7-17) mg/dL Creatinine (0.52-1.04) mg/dL Est GFR (CKD-EPI)AfAm (>60 ml/min/1.73 sqM) Est GFR (CKD-EPI)NonAf (>60 ml/min/1.73 sqM) Glucose (74-99) mg/dL Plasma Lactic Acid Bret (0.7-2.0) mmol/L Calcium (8.4-10.2) mg/dL Phosphorus (2.5-4.5) mg/dL Magnesium (1.6-2.3) mg/dL Total Bilirubin (0.2-1.3) mg/dL AST (14-36) U/L ALT (4-34) U/L Alkaline Phosphatase (38-126) U/L Creatine Kinase (30-135) U/L Troponin I (0.000-0.034) ng/mL NT-Pro-B Natriuret Pep 179 pg/mL Total Protein (6.3-8.2) g/dL Albumin (3.5-5.0) g/dL TSH (0.465-4.680) mIU/L Urine Color Urine Appearance (Clear) Urine pH (5.0-8.0) Ur Specific [place] (1.001-1.035) Urine Protein (Negative) Urine Glucose (UA) (Negative) Urine Ketones (Negative) Urine Blood (Negative) Urine Nitrite (Negative) Urine Bilirubin (Negative) Urine Urobilinogen (<2.0) mg/dL Ur Leukocyte Esterase (Negative) Urine RBC (0-5) /hpf Urine WBC (0-5) /hpf Ur Squamous Epith Cells (0-4) /hpf Urine Bacteria (None) /hpf Hyaline Casts (0-2) /lpf Urine Mucus (None) /hpf Critical Care Time Critical Care Time: Yes Total Critical Care Time: 31 Disposition Clinical Impression: SVT (supraventricular tachycardia) Disposition: HOME SELF-CARE Condition: Good Instructions (If sedation given, give patient instructions): Supraventricular Tachycardia (ED) Is patient prescribed a controlled substance at d/c from ED?: No Referrals: Jaylon Francisco DO [Primary Care Provider] - 1-2 days Juventino Alaniz MD [STAFF PHYSICIAN] - 1-2 days
[2020-08-13 13:03] LABS: Basophils # (A) 0.1 k/uL (0-0.2); Basophils % (A) 1 %; Eosinophils # (A) 0.2 k/uL (0-0.7); Eosinophils % (A) 2 %; HCT 43.4 % (34.0-46.0); HGB 14.6 gm/dL (11.4-16.0); Lymphocytes # (A) 2.7 k/uL (1.0-4.8); Lymphocytes % (A) 29 %; MCH 30.8 pg (25.0-35.0); MCHC 33.6 g/dL (31.0-37.0); MCV 91.7 fL (80.0-100.0); Mean Platelet Volume 6.7; Monocytes # (A) 0.3 k/uL (0-1.0); Monocytes % (A) 3 %; Neutrophils # (A) 5.9 k/uL (1.3-7.7); Neutrophils % (A) 64 %; Platelet Count 349 k/uL (150-450); RBC 4.73 m/uL (3.80-5.40); WBC 9.2 k/uL (3.8-10.6)
[2020-08-13 13:10] LABS: Albumin 4.7 g/dL (3.5-5.0); Calcium 10.1 mg/dL (8.4-10.2); Magnesium 1.8 mg/dL (1.6-2.3); Phosphorus 4.5 mg/dL (2.5-4.5); Potassium 4.2 mmol/L (3.5-5.1); Total Bilirubin 0.4 mg/dL (0.2-1.3); Total Protein 7.8 g/dL (6.3-8.2)
[2020-08-13 13:13] LABS: Appearance,Urine Cloudy (Clear); Bacteria,Urine Moderate /hpf; Bilirubin,Urine Negative (Negative); Blood,Urine Negative (Negative); Color,Urine Yellow; Glucose,Urine (UA) Negative (Negative); Hyaline Casts,Urine 4 /lpf (0-2); Ketones,Urine Negative (Negative); Leukocyte Esterase,Urine Trace (Negative); Mucus,Urine Few /hpf; Nitrite,Urine Negative (Negative); Protein,Urine 1+ (Negative); RBC,Urine 1 /hpf (0-5); Squamous Epithelial Cell,Urine 16 /hpf (0-4); Urobilinogen,Urine <2.0 mg/dL (<2.0); WBC,Urine 3 /hpf (0-5)
[2020-08-13 13:15] LABS: D-Dimer 0.34 mg/L FEU (<0.60); INR 0.9 (<1.2); Partial Thromboplastin Time 23.9 sec (22.0-30.0); Prothrombin Time 9.9 sec (9.0-12.0)
[2020-08-13] MEDS ORDERED: METOPROLOL TARTRATE 5 MG/5 ML VIAL IVP STA (14:03)
[2020-08-13] MEDS ORDERED: METOPROLOL TARTRATE 25 MG TAB PO STA (14:03)
[2020-08-13 14:32] VITALS: BP 110/73; PULSE 84; TEMP 98
== END 2020-08-13 14:32 | disposition home or self-care (01) ==
LOC: EC 12:12
DX: I47.1 Supraventricular tachycardia (principal); F90.9 Attention-deficit hyperactivity disorder, unspecified type; Z79.899 Other long term (current) drug therapy; Z88.0 Allergy status to penicillin; Z87.891 Personal history of nicotine dependence
CPT/HCPCS: 36415; 80053; 81001; 82550; 83605; 83735; 83880; 84100; 84443; 84484; 85025; 85379; 85610; 85730; 93005; 96361; 96374; 99284

== ENCOUNTER 2021-07-19 11:07 | Emergency (ER) | payer OTHER ==
[2021-07-19 11:13] VITALS: BP 105/102; PULSE 85; RESP 18; TEMP 98
[2021-07-19] MEDS ORDERED: MORPHINE SULFATE 4 MG/ML SYRINGE IM STA (11:21)
--- NOTE | 2021-07-19 12:25 | XR ---
EXAMINATION TYPE: XR humerus LT DATE OF EXAM: 07/19/2021 COMPARISON: NONE HISTORY: Pain TECHNIQUE: 2 views submitted. FINDINGS: The osseous structures are intact and the joint spaces are preserved. IMPRESSION: 1. No acute fracture or dislocation.
--- NOTE | 2021-07-19 12:26 | XR ---
EXAMINATION TYPE: XR scapula LT DATE OF EXAM: 07/19/2021 COMPARISON: NONE HISTORY: Pain TECHNIQUE: 2 view submitted FINDINGS: AC joint arthropathy noted. Correlate for rotator cuff disease. Visualized rib cage intact. Visualized scapula otherwise intact. No definite acute displaced fracture. IMPRESSION: AC joint arthropathy correlate for rotator cuff disease.
--- NOTE | 2021-07-19 12:29 | XR ---
EXAMINATION TYPE: XR Hip Bilateral and AP pelvis DATE OF EXAM: 07/19/2021 COMPARISON: NONE HISTORY: Pain TECHNIQUE: A single AP view of the pelvis is obtained. Two views of the bilateral hip are obtained. FINDINGS: There is no acute fracture/dislocation evident in the pelvis. The mild sclerosis involvin g the SI joint greater on the left.. The overlying soft tissue appears unremarkable. Generative jones ge lower lumbar spine. Two views of bilateral hip show no acute fracture or dislocation. There is mild concentric narrowin g the joint space and hypertrophic changes of the acetabulum. Calcifications in the pelvis are likely vascular. IMPRESSION: 1. There is no acute fracture or dislocation in the pelvis or bilateral hip. Bilateral hip arthropath y correlate for femoral acetabular impingement. 2. Correlate for sacroiliitis.
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
== END 2021-07-19 13:09 | disposition home or self-care (01) ==
LOC: EC 11:07
DX: M25.512 Pain in left shoulder (principal); M25.552 Pain in left hip; F90.9 Attention-deficit hyperactivity disorder, unspecified type; F17.200 Nicotine dependence, unspecified, uncomplicated; Z88.0 Allergy status to penicillin; Z90.710 Acquired absence of both cervix and uterus; Z98.51 Tubal ligation status
CPT/HCPCS: 99284; 96372; 73521; 73010; 73060; J2270

== ENCOUNTER 2021-11-29 03:01 | Emergency (ER) | payer OTHER ==
[2021-11-29 03:11] VITALS: TEMP 97.1
[2021-11-29] MEDS ORDERED: LORazepam 2 MG/ML INJ IV STA (03:24)
[2021-11-29 03:42] LABS: Basophils # (A) 0.1 k/uL (0-0.2); Basophils % (A) 1 %; Eosinophils # (A) 0.3 k/uL (0-0.7); Eosinophils % (A) 3 %; HCT 41.2 % (34.0-46.0); HGB 14.2 gm/dL (11.4-16.0); Lymphocytes # (A) 4.9 k/uL (1.0-4.8); Lymphocytes % (A) 46 %; MCH 31.4 pg (25.0-35.0); MCHC 34.4 g/dL (31.0-37.0); MCV 91.3 fL (80.0-100.0); Mean Platelet Volume 7.3; Monocytes # (A) 0.4 k/uL (0-1.0); Monocytes % (A) 4 %; Neutrophils # (A) 4.8 k/uL (1.3-7.7); Neutrophils % (A) 45 %; Platelet Count 312 k/uL (150-450); RBC 4.51 m/uL (3.80-5.40); RDW 12.1 % (11.5-15.5); WBC 10.7 k/uL (3.8-10.6)
--- NOTE | 2021-11-29 03:48 | ED ---
Arrhythmia/Palpitations HPI - General Chief Complaint: Arrhythmia/Palpitations Stated Complaint: High Heart Rate Time Seen by Provider: 11/29/21 03:18 Source: patient Mode of arrival: ambulatory - History of Present Illness MD Complaint: "heart racing" Onset/Timin -: hour(s) Context: awoke with symptoms Arrhythmia History: SVT Associated Symptoms: denies other symptoms - Related Data Home Medications Medication Instructions Recorded Confirmed Dextroamphetamine/Amphetamine 30 mg PO BID 03/12/17 07/19/21 [Adderall] Cetirizine HCl [Zyrtec] 10 mg PO HS PRN 07/19/21 07/19/21 Ergocalciferol [Vitamin D2 (1250 1,250 mcg PO TU 07/19/21 07/19/21 Mcg = 89252 Iu)] Furosemide [Lasix] 20 mg PO DAILY PRN 07/19/21 07/19/21 Ibuprofen [Motrin] 800 mg PO Q8H PRN 07/19/21 07/19/21 guaiFENesin [Mucinex] 1,200 mg PO BID PRN 07/19/21 07/19/21 Previous Rx's Medication Instructions Recorded Metoprolol Tartrate 25 mg PO BID #60 tab 08/13/20 Allergies Allergy/AdvReac Type Severity Reaction Status Date / Time Penicillins Allergy Severe Rash/Hives Verified 11/29/21 03:04 Review of Systems ROS Statement: Those systems with pertinent positive or pertinent negative responses have been documented in the HPI. ROS Other: All systems not noted in ROS Statement are negative. Constitutional: Denies: fever, chills, weakness Respiratory: Denies: cough, dyspnea Cardiovascular: Reports: palpitations. Denies: chest pain, orthopnea, edema, syncope Gastrointestinal: Denies: abdominal pain, vomiting, diarrhea Genitourinary: Denies: dysuria, hematuria Musculoskeletal: Denies: back pain Skin: Denies: rash Neurological: Denies: headache, weakness Past Medical History Past Medical History: No Reported History Additional Past Medical History / Comment(s): migraines, difficult periods, neck pain- bone spurs History of Any Multi-Drug Resistant Organisms: None Reported Past Surgical History: Back Surgery, Hernia Repair, Hysterectomy, Tubal Ligation Additional Past Surgical History / Comment(s): hiatal hernia repair Past Anesthesia/Blood Transfusion Reactions: No Reported Reaction Past Psychological History: ADD/ADHD Smoking Status: Current some day smoker Past Alcohol Use History: None Reported Past Drug Use History: None Reported - Past Family History Mother Family Medical History: No Reported History General Exam General appearance: alert, in no apparent distress Head exam: Present: atraumatic, normocephalic Eye exam: Present: normal appearance. Absent: scleral icterus, conjunctival injection ENT exam: Present: normal oropharynx Neck exam: Present: normal inspection Respiratory exam: Present: normal lung sounds bilaterally. Absent: respiratory distress, wheezes, rales, rhonchi, stridor Cardiovascular Exam: Present: normal rhythm, tachycardia, normal heart sounds. Absent: systolic murmur, diastolic murmur, rubs, gallop GI/Abdominal exam: Present: soft. Absent: distended, tenderness, guarding, rebound, rigid Extremities exam: Present: normal inspection, normal capillary refill. Absent: pedal edema, calf tenderness Back exam: Present: normal inspection. Absent: CVA tenderness (R), CVA tenderness (L) Neurological exam: Present: alert Skin exam: Present: warm, dry, intact, normal color. Absent: rash Course Vital Signs 11/29/21 11/29/21 11/29/21 03:04 03:20 03:27 Temperature 97.1 F L Pulse Rate 178 H 74 Pulse Rate [ 170 H Community Mental Health Worker ] Respiratory 22 22 Rate Blood Pressure O2 Sat by Pulse 100 95 Oximetry 11/29/21 04:36 Temperature Pulse Rate 73 Pulse Rate [ Community Mental Health Worker ] Respiratory 18 Rate Blood Pressure 112/74 O2 Sat by Pulse 95 Oximetry EKG Findings - EKG Results: EKG: interpreted by ERMD, normal axis, normal QRS EKG shows: tachycardia (Rhythm is SVT with rate 176.) - Blocks, Trosper, Hypertrophy, ST Abn: Repolarization changes or abnormalities: ST suggestive of injury Medical Decision Making - Medical Decision Making Patient is a 46-year-old woman presenting with palpitations. Found to be in SVT. While in the process of obtaining adenosine from the pharmacy, the patient received a phone call from her and spontaneously converted to sinus rhythm. - Lab Data Result diagrams: 11/29/21 03:25 11/29/21 03:25 Lab Results 11/29/21 11/29/21 11/29/21 Range/Units 03:25 03:25 03:25 WBC 10.7 H (3.8-10.6) k/uL RBC 4.51 (3.80-5.40) m/uL Hgb 14.2 (11.4-16.0) gm/dL Hct 41.2 (34.0-46.0) % MCV 91.3 (80.0-100.0) fL MCH 31.4 (25.0-35.0) pg MCHC 34.4 (31.0-37.0) g/dL RDW 12.1 (11.5-15.5) % Plt Count 312 (150-450) k/uL MPV 7.3 Neutrophils % 45 % Lymphocytes % 46 % Monocytes % 4 % Eosinophils % 3 % Basophils % 1 % Neutrophils # 4.8 (1.3-7.7) k/uL Lymphocytes # 4.9 H (1.0-4.8) k/uL Monocytes # 0.4 (0-1.0) k/uL Eosinophils # 0.3 (0-0.7) k/uL Basophils # 0.1 (0-0.2) k/uL PT 10.0 (9.0-12.0) sec INR 0.9 (<1.2) APTT 23.1 (22.0-30.0) sec Sodium 137 (137-145) mmol/L Potassium 4.4 (3.5-5.1) mmol/L Chloride 110 H (98-107) mmol/L Carbon Dioxide 20 L (22-30) mmol/L Anion Gap 7 mmol/L BUN 16 (7-17) mg/dL Creatinine 0.55 (0.52-1.04) mg/dL Est GFR (CKD-EPI)AfAm >90 (>60 ml/min/1.73 sqM) Est GFR (CKD-EPI)NonAf >90 (>60 ml/min/1.73 sqM) Glucose 161 H (74-99) mg/dL Calcium 9.1 (8.4-10.2) mg/dL Magnesium 1.9 (1.6-2.3) mg/dL Total Bilirubin 0.5 (0.2-1.3) mg/dL AST 27 (14-36) U/L ALT 14 (4-34) U/L Alkaline Phosphatase 40 (38-126) U/L Troponin I (0.000-0.034) ng/mL Total Protein 6.9 (6.3-8.2) g/dL Albumin 3.9 (3.5-5.0) g/dL TSH 2.350 (0.465-4.680) mIU/L 11/29/21 Range/Units 03:25 WBC (3.8-10.6) k/uL RBC (3.80-5.40) m/uL Hgb (11.4-16.0) gm/dL Hct (34.0-46.0) % MCV (80.0-100.0) fL MCH (25.0-35.0) pg MCHC (31.0-37.0) g/dL RDW (11.5-15.5) % Plt Count (150-450) k/uL MPV Neutrophils % % Lymphocytes % % Monocytes % % Eosinophils % % Basophils % % Neutrophils # (1.3-7.7) k/uL Lymphocytes # (1.0-4.8) k/uL Monocytes # (0-1.0) k/uL Eosinophils # (0-0.7) k/uL Basophils # (0-0.2) k/uL PT (9.0-12.0) sec INR (<1.2) APTT (22.0-30.0) sec Sodium (137-145) mmol/L Potassium (3.5-5.1) mmol/L Chloride (98-107) mmol/L Carbon Dioxide (22-30) mmol/L Anion Gap mmol/L BUN (7-17) mg/dL Creatinine (0.52-1.04) mg/dL Est GFR (CKD-EPI)AfAm (>60 ml/min/1.73 sqM) Est GFR (CKD-EPI)NonAf (>60 ml/min/1.73 sqM) Glucose (74-99) mg/dL Calcium (8.4-10.2) mg/dL Magnesium (1.6-2.3) mg/dL Total Bilirubin (0.2-1.3) mg/dL AST (14-36) U/L ALT (4-34) U/L Alkaline Phosphatase (38-126) U/L Troponin I 0.015 (0.000-0.034) ng/mL Total Protein (6.3-8.2) g/dL Albumin (3.5-5.0) g/dL TSH (0.465-4.680) mIU/L Disposition Clinical Impression: Supraventricular tachycardia Disposition: HOME SELF-CARE Condition: Good Instructions (If sedation given, give patient instructions): Supraventricular Tachycardia (ED) Is patient prescribed a controlled substance at d/c from ED?: No Referrals: Jaylon Francisco DO [Primary Care Provider] - 1-2 days
[2021-11-29 03:56] LABS: ALT 14 U/L (4-34); African American GFR (CKD) >90 (>60 ml/min/1.73 sqM); Anion Gap 7 mmol/L; Blood Urea Nitrogen 16 mg/dL (7-17); Calcium 9.1 mg/dL (8.4-10.2); Carbon Dioxide 20 mmol/L (22-30); Chloride 110 mmol/L (98-107); Glucose 161 mg/dL (74-99); Non-African American GFR(CKD) >90 (>60 ml/min/1.73 sqM); Sodium 137 mmol/L (137-145); Total Bilirubin 0.5 mg/dL (0.2-1.3)
[2021-11-29 03:58] LABS: Albumin 3.9 g/dL (3.5-5.0); Magnesium 1.9 mg/dL (1.6-2.3); Potassium 4.4 mmol/L (3.5-5.1); Total Protein 6.9 g/dL (6.3-8.2)
[2021-11-29 03:59] LABS: AST 27 U/L (14-36); Alkaline Phosphatase 40 U/L (38-126)
[2021-11-29 04:01] LABS: INR 0.9 (<1.2); Partial Thromboplastin Time 23.1 sec (22.0-30.0)
--- NOTE | 2021-11-29 04:08 | XR ---
EXAMINATION TYPE: XR chest 2V DATE OF EXAM: 11/29/2021 COMPARISON: NONE HISTORY: Dysrhythmia TECHNIQUE: 2 views FINDINGS: Heart and mediastinum are normal. Lungs are clear. Diaphragm is normal. There is cervical s pine fusion surgery. There are chest leads. Bony thorax is intact. IMPRESSION: Normal chest
[2021-11-29 04:38] VITALS: BP 112/74; PULSE 73; RESP 18
== END 2021-11-29 04:49 | disposition home or self-care (01) ==
LOC: EC 03:01
DX: I47.1 Supraventricular tachycardia (principal); F90.9 Attention-deficit hyperactivity disorder, unspecified type; F17.200 Nicotine dependence, unspecified, uncomplicated; Z88.0 Allergy status to penicillin; Z90.710 Acquired absence of both cervix and uterus; Z98.51 Tubal ligation status
CPT/HCPCS: 36415; 71046; 80053; 83735; 84443; 84484; 85025; 85610; 85730; 93005; 96374; 99285

== ENCOUNTER 2022-09-22 04:05 | Emergency (ER) | payer OTHER ==
--- NOTE | 2022-09-22 04:25 | ED ---
Arrhythmia/Palpitations HPI - General Chief Complaint: Arrhythmia/Palpitations Stated Complaint: High heart rate Time Seen by Provider: 09/22/22 04:11 Source: patient, RN notes reviewed, old records reviewed Mode of arrival: wheelchair Limitations: no limitations - History of Present Illness Initial Comments: This is a 47-year-old female to the ER for evaluation. Patient has history of SVT on metoprolol. Patient presents today for evaluation of elevated heart rate severely elevated heart rate woke her from sleep. Patient's oxygen a pass out multiple times especially with going to the bathroom. Patient presents to the ER in the waiting room was able to bear down her elevated heart rate MD Complaint: rapid heart beat, "heart racing", palpitations, irregular heart beat -: hour(s) Context: occurred during rest, awoke with symptoms Arrhythmia History: SVT Associated Symptoms: chest pain, shortness of breath, syncope, near-syncope Treatments Prior to Arrival: vagal maneuvers (Patient was able to resolve symptoms prior to arrival in the waiting room) - Related Data Home Medications Medication Instructions Recorded Confirmed Dextroamphetamine/Amphetamine 30 mg PO BID 03/12/17 07/19/21 [Adderall] Cetirizine HCl [Zyrtec] 10 mg PO HS PRN 07/19/21 07/19/21 Ergocalciferol [Vitamin D2 (1250 1,250 mcg PO TU 07/19/21 07/19/21 Mcg = 56799 Iu)] Furosemide [Lasix] 20 mg PO DAILY PRN 07/19/21 07/19/21 Ibuprofen [Motrin] 800 mg PO Q8H PRN 07/19/21 07/19/21 guaiFENesin [Mucinex] 1,200 mg PO BID PRN 07/19/21 07/19/21 Previous Rx's Medication Instructions Recorded Metoprolol Tartrate 25 mg PO BID #60 tab 08/13/20 Allergies Allergy/AdvReac Type Severity Reaction Status Date / Time Penicillins Allergy Severe Rash/Hives Verified 09/22/22 04:10 Review of Systems ROS Statement: Those systems with pertinent positive or pertinent negative responses have been documented in the HPI. ROS Other: All systems not noted in ROS Statement are negative. Past Medical History Past Medical History: No Reported History Additional Past Medical History / Comment(s): migraines, difficult periods, neck pain- bone spurs History of Any Multi-Drug Resistant Organisms: None Reported Past Surgical History: Back Surgery, Hernia Repair, Hysterectomy, Tubal Ligation Additional Past Surgical History / Comment(s): hiatal hernia repair Past Anesthesia/Blood Transfusion Reactions: No Reported Reaction Past Psychological History: ADD/ADHD Smoking Status: Current some day smoker Past Alcohol Use History: None Reported Past Drug Use History: None Reported - Past Family History Mother Family Medical History: No Reported History General Exam Limitations: no limitations General appearance: alert, in no apparent distress, anxious Head exam: Present: atraumatic, normocephalic, normal inspection Eye exam: Present: normal appearance, PERRL, EOMI. Absent: scleral icterus, conjunctival injection, periorbital swelling ENT exam: Present: normal exam, mucous membranes moist Neck exam: Present: normal inspection. Absent: tenderness, meningismus, lymphadenopathy Respiratory exam: Present: normal lung sounds bilaterally. Absent: respiratory distress, wheezes, rales, rhonchi, stridor Cardiovascular Exam: Present: regular rate, normal rhythm, normal heart sounds. Absent: systolic murmur, diastolic murmur, rubs, gallop, clicks GI/Abdominal exam: Present: soft, normal bowel sounds. Absent: distended, tenderness, guarding, rebound, rigid Extremities exam: Present: normal inspection, full ROM, normal capillary refill. Absent: tenderness, pedal edema, joint swelling, calf tenderness Back exam: Present: normal inspection Neurological exam: Present: alert, oriented X3, CN II-XII intact Psychiatric exam: Present: normal affect, normal mood Skin exam: Present: warm, dry, intact, normal color. Absent: rash Course Vital Signs 09/22/22 09/22/22 04:10 04:30 Temperature 97.3 F L 98 F Pulse Rate 85 86 Respiratory 22 16 Rate Blood Pressure 105/67 101/67 O2 Sat by Pulse 97 97 Oximetry - Reevaluation(s) Reevaluation #1: 09/22/22 04:24 Medical records reviewed Reevaluation #2: 09/22/22 05:23 Patient informed of results and questions are answered Reevaluation #3: 09/22/22 05:23 patient remains in normal sinus rhythm EKG Findings - EKG Comments: EKG Findings:: EKG interpreted by me sinus 81 VA 167 QRS 90 QTC 390 Medical Decision Making - Medical Decision Making 47 female DF for evaluation. Patient presented in SVT which resolved spontaneously with ankle maneuver. Patient does have low magnesium low potassium which is replaced and she can be discharged home - Lab Data Result diagrams: 09/22/22 04:21 09/22/22 04:21 Lab Results 09/22/22 09/22/22 09/22/22 Range/Units 04:21 04:21 04:21 WBC 6.3 (3.8-10.6) k/uL RBC 4.62 (3.80-5.40) m/uL Hgb 14.5 (11.4-16.0) gm/dL Hct 41.3 (34.0-46.0) % MCV 89.4 (80.0-100.0) fL MCH 31.3 (25.0-35.0) pg MCHC 35.0 (31.0-37.0) g/dL RDW 12.0 (11.5-15.5) % Plt Count 198 (150-450) k/uL MPV 7.9 Neutrophils % 65 % Lymphocytes % 23 % Monocytes % 9 % Eosinophils % 1 % Basophils % 1 % Neutrophils # 4.1 (1.3-7.7) k/uL Lymphocytes # 1.4 (1.0-4.8) k/uL Monocytes # 0.6 (0-1.0) k/uL Eosinophils # 0.1 (0-0.7) k/uL Basophils # 0.1 (0-0.2) k/uL PT 10.8 (9.0-12.0) sec INR 1.0 (<1.2) APTT 27.0 (22.0-30.0) sec Sodium 138 (137-145) mmol/L Potassium 3.3 L (3.5-5.1) mmol/L Chloride 107 (98-107) mmol/L Carbon Dioxide 24 (22-30) mmol/L Anion Gap 7 mmol/L BUN 10 (7-17) mg/dL Creatinine 0.67 (0.52-1.04) mg/dL Est GFR (CKD-EPI)AfAm >90 (>60 ml/min/1.73 sqM) Est GFR (CKD-EPI)NonAf >90 (>60 ml/min/1.73 sqM) Glucose 160 H (74-99) mg/dL Calcium 8.2 L (8.4-10.2) mg/dL Phosphorus 4.4 (2.5-4.5) mg/dL Magnesium 1.9 (1.6-2.3) mg/dL Total Bilirubin 0.2 (0.2-1.3) mg/dL AST 29 (14-36) U/L ALT 24 (4-34) U/L Alkaline Phosphatase 54 (38-126) U/L NT-Pro-B Natriuret Pep pg/mL Total Protein 6.4 (6.3-8.2) g/dL Albumin 4.0 (3.5-5.0) g/dL 09/22/22 Range/Units 04:21 WBC (3.8-10.6) k/uL RBC (3.80-5.40) m/uL Hgb (11.4-16.0) gm/dL Hct (34.0-46.0) % MCV (80.0-100.0) fL MCH (25.0-35.0) pg MCHC (31.0-37.0) g/dL RDW (11.5-15.5) % Plt Count (150-450) k/uL MPV Neutrophils % % Lymphocytes % % Monocytes % % Eosinophils % % Basophils % % Neutrophils # (1.3-7.7) k/uL Lymphocytes # (1.0-4.8) k/uL Monocytes # (0-1.0) k/uL Eosinophils # (0-0.7) k/uL Basophils # (0-0.2) k/uL PT (9.0-12.0) sec INR (<1.2) APTT (22.0-30.0) sec Sodium (137-145) mmol/L Potassium (3.5-5.1) mmol/L Chloride (98-107) mmol/L Carbon Dioxide (22-30) mmol/L Anion Gap mmol/L BUN (7-17) mg/dL Creatinine (0.52-1.04) mg/dL Est GFR (CKD-EPI)AfAm (>60 ml/min/1.73 sqM) Est GFR (CKD-EPI)NonAf (>60 ml/min/1.73 sqM) Glucose (74-99) mg/dL Calcium (8.4-10.2) mg/dL Phosphorus (2.5-4.5) mg/dL Magnesium (1.6-2.3) mg/dL Total Bilirubin (0.2-1.3) mg/dL AST (14-36) U/L ALT (4-34) U/L Alkaline Phosphatase (38-126) U/L NT-Pro-B Natriuret Pep 449 pg/mL Total Protein (6.3-8.2) g/dL Albumin (3.5-5.0) g/dL Disposition Clinical Impression: Tachycardia, Supraventricular tachycardia Disposition: HOME SELF-CARE Condition: Good Instructions (If sedation given, give patient instructions): Supraventricular Tachycardia (ED) Is patient prescribed a controlled substance at d/c from ED?: No Referrals: Jaylon Francisco DO [Primary Care Provider] - 1-2 days Time of Disposition: 05:00
[2022-09-22 04:31] VITALS: RESP 16
[2022-09-22] MEDS ORDERED: SODIUM CHLORIDE 0.9% 1,000 ML IV STA (04:39)
[2022-09-22 04:46] LABS: Basophils # (A) 0.1 k/uL (0-0.2); Basophils % (A) 1 %; Eosinophils # (A) 0.1 k/uL (0-0.7); Eosinophils % (A) 1 %; HCT 41.3 % (34.0-46.0); HGB 14.5 gm/dL (11.4-16.0); Lymphocytes # (A) 1.4 k/uL (1.0-4.8); Lymphocytes % (A) 23 %; MCH 31.3 pg (25.0-35.0); MCV 89.4 fL (80.0-100.0); Mean Platelet Volume 7.9; Monocytes # (A) 0.6 k/uL (0-1.0); Monocytes % (A) 9 %; Neutrophils # (A) 4.1 k/uL (1.3-7.7); Neutrophils % (A) 65 %; Platelet Count 198 k/uL (150-450); RBC 4.62 m/uL (3.80-5.40); WBC 6.3 k/uL (3.8-10.6)
[2022-09-22 04:51] LABS: ALT 24 U/L (4-34); AST 29 U/L (14-36); African American GFR (CKD) >90 (>60 ml/min/1.73 sqM); Alkaline Phosphatase 54 U/L (38-126); Anion Gap 7 mmol/L; Blood Urea Nitrogen 10 mg/dL (7-17); Calcium 8.2 mg/dL (8.4-10.2); Carbon Dioxide 24 mmol/L (22-30); Chloride 107 mmol/L (98-107); Glucose 160 mg/dL (74-99); Magnesium 1.9 mg/dL (1.6-2.3); Non-African American GFR(CKD) >90 (>60 ml/min/1.73 sqM); Phosphorus 4.4 mg/dL (2.5-4.5); Potassium 3.3 mmol/L (3.5-5.1); Sodium 138 mmol/L (137-145); Total Bilirubin 0.2 mg/dL (0.2-1.3); Total Protein 6.4 g/dL (6.3-8.2)
[2022-09-22 04:57] LABS: Prothrombin Time 10.8 sec (9.0-12.0)
[2022-09-22] MEDS ORDERED: POTASSIUM CHLORIDE ER 20 MEQ TAB.ER PO STA (05:08)
[2022-09-22] MEDS ORDERED: MAGNESIUM OXIDE 400 MG TAB PO STA ×2 (05:08)
[2022-09-22] MEDS ORDERED: POTASSIUM BICARBONATE/CIT AC 20 MEQ TABLET.EFF PO STA (05:08)
[2022-09-22 05:28] VITALS: BP 101/77; PULSE 82; TEMP 97.9
== END 2022-09-22 05:31 | disposition home or self-care (01) ==
LOC: EC 04:05
DX: I47.1 Supraventricular tachycardia (principal); F17.200 Nicotine dependence, unspecified, uncomplicated; Z88.0 Allergy status to penicillin
CPT/HCPCS: 36415; 80053; 83735; 83880; 84100; 84484; 85025; 85610; 85730; 93005; 96360; 99285

== ENCOUNTER → 2022-10-10 | Outpatient (CLI) | payer OTHER ==
--- NOTE | 2022-10-28 17:18 | CE ---
CARDIAC ELECTROPHYSIOLOGY REPORT STUDY PERFORMED: Fourteen days event monitor. FINDINGS: The patient was monitored for 14 days. The baseline rhythm appeared to be sinus mechanism and predominantly sinus tachycardia. The patient did have 2 episodes appeared to be very short of supraventricular tachycardia noted. No significant sinus pause or sinus arrest seen. No evidence of any advanced AV block seen. CONCLUSION: 1. This is a 2 weeks event monitor. 2. The baseline rhythm appeared to be sinus mechanism. 3. The patient did have 2 brief episodes of supraventricular tachycardia. MMODL / IJN: [id number] /
== END | disposition home or self-care (01) ==
LOC: RADECHMAIN 11:55
PROVIDERS: ATTEND Family Medicine
DX: I47.1 Supraventricular tachycardia (principal); I51.4 Myocarditis, unspecified; I21.4 Non-ST elevation (NSTEMI) myocardial infarction
CPT/HCPCS: 93270

== ENCOUNTER 2022-11-14 08:45 | Emergency (ER) | payer OTHER ==
--- NOTE | 2022-11-14 09:06 | ED ---
General Adult HPI - General Chief complaint: Arrhythmia/Palpitations Stated complaint: Tachycardia Time Seen by Provider: 11/14/22 08:52 Source: patient, RN notes reviewed Mode of arrival: ambulatory Limitations: no limitations - History of Present Illness Initial comments: Patient is a pleasant 47-year-old female presenting to the emergency department with concerns for tachycardia, palpitations. Onset of symptoms was around 10 minutes prior to arrival. Patient was driving near the hospital. Patient does have history of similar symptoms approximately a dozen times previously however they were unable to identify the cause. Patient feels her heart is racing. No chest pain. No dyspnea. - Related Data Home Medications Medication Instructions Recorded Confirmed Dextroamphetamine/Amphetamine 30 mg PO BID 03/12/17 07/19/21 [Adderall] Cetirizine HCl [Zyrtec] 10 mg PO HS PRN 07/19/21 07/19/21 Ergocalciferol [Vitamin D2 (1250 1,250 mcg PO TU 07/19/21 07/19/21 Mcg = 21031 Iu)] Furosemide [Lasix] 20 mg PO DAILY PRN 07/19/21 07/19/21 Ibuprofen [Motrin] 800 mg PO Q8H PRN 07/19/21 07/19/21 guaiFENesin [Mucinex] 1,200 mg PO BID PRN 07/19/21 07/19/21 Previous Rx's Medication Instructions Recorded Metoprolol Tartrate 25 mg PO BID #60 tab 08/13/20 Allergies Allergy/AdvReac Type Severity Reaction Status Date / Time Penicillins Allergy Severe Rash/Hives Verified 09/22/22 04:10 Review of Systems ROS Statement: Those systems with pertinent positive or pertinent negative responses have been documented in the HPI. ROS Other: All systems not noted in ROS Statement are negative. Constitutional: Denies: fever Eyes: Denies: eye pain ENT: Denies: ear pain Respiratory: Denies: cough, dyspnea Cardiovascular: Reports: as per HPI, palpitations. Denies: chest pain Endocrine: Denies: fatigue Gastrointestinal: Denies: abdominal pain Genitourinary: Denies: urgency Skin: Denies: lesions Neurological: Denies: weakness Past Medical History Past Medical History: No Reported History Additional Past Medical History / Comment(s): migraines, difficult periods, neck pain- bone spurs History of Any Multi-Drug Resistant Organisms: None Reported Past Surgical History: Back Surgery, Hernia Repair, Hysterectomy, Tubal Ligation Additional Past Surgical History / Comment(s): hiatal hernia repair Past Anesthesia/Blood Transfusion Reactions: No Reported Reaction Past Psychological History: ADD/ADHD Smoking Status: Current some day smoker Past Alcohol Use History: None Reported Past Drug Use History: None Reported - Past Family History Mother Family Medical History: No Reported History General Exam Limitations: no limitations General appearance: alert, in no apparent distress Head exam: Present: normocephalic Eye exam: Present: normal appearance Neck exam: Present: normal inspection Respiratory exam: Present: normal lung sounds bilaterally Cardiovascular Exam: Present: tachycardia Expanded Peripheral pulses: 2+: Radial (R), Radial (L), Posterior Tibialis (R), Posterior Tibialis (L) GI/Abdominal exam: Present: soft. Absent: tenderness Extremities exam: Present: normal inspection. Absent: pedal edema, calf tender ness Neurological exam: Present: alert Psychiatric exam: Present: normal affect, normal mood Skin exam: Present: normal color Course Vital Signs 11/14/22 11/14/22 11/14/22 08:47 09:28 09:30 Temperature 98 F 97.6 F Pulse Rate 188 H 84 Pulse Rate [ 89 Mail Censor ] Respiratory 26 H 16 Rate Blood Pressure 144/60 124/79 O2 Sat by Pulse 97 97 Oximetry - Reevaluation(s) Reevaluation #1: 11/14/22 09:04 Repeat EKG interpreted by ED provider shows sinus rhythm rate 73. NV 180. QRS 85. QT 359. QTc 385. Left axis. Normal QRS. No acute ST change. 11/14/22 10:24 Patient does have a juke box mechanic not in town and will follow-up with them. EKG Findings - EKG Results: EKG: interpreted by [facility] (SVT with a rate of 189. Nonspecific ST-T.), normal axis, normal QRS EKG shows: tachycardia Procedures - Procedures Initial comment: Performed by ED provider. Carotid massages for approximately 2 minutes with resolution of SVT and conversion to sinus rhythm on the monitor. Repeat monitor shows normal sinus rhythm with a rate of 80. Patient was placed on monitor secondary to arrhythmia and to monitor heart rate. Medical Decision Making - Medical Decision Making Patient specifically made aware of pulmonary nodule and need for follow-up with this. Was pt. sent in by a medical professional or institution ([employer], [employer] TE[employer]ER, urgent care, hospital, or detention...) When possible be specific @ -No Did you speak to anyone other than the patient for history (EMS, parent, family, police, friend...)? What history was obtained from this source @ -No Did you review nursing and triage notes (agree or disagree)? Why? @ -I reviewed and agree with nursing and triage notes Were old charts reviewed (outside hosp., previous admission, EMS record, old EKG, old radiological studies, urgent care reports/EKG's, detention records)? Report findings @ -No old charts were reviewed Differential Diagnosis (chest pain, altered mental status, abdominal pain women, abdominal pain men, vaginal bleeding, weakness, fever, dyspnea, syncope, headache, dizziness, GI bleed, back pain, seizure, CVA, palpatations, mental he alth)? @ -Differential Chest Pain: Stable Angina, Unstable Angina, STEMI, NSTEMI Aortic Dissection, Pneumothorax, Musculoskeletal, Esophageal Spasm GERD, Cholecystitis, Pancreatitis, Zoster, this is not meant to be an all-inclusive list. EKG interpreted by me (3pts min.). @ -As above X-rays interpreted by me (1pt min.). @ -Chest x-ray shows pulmonary nodule similar to previous. Patient was updated regarding this and need for follow-up with this. CT interpreted by me (1pt min.). @ -None done U/S interpreted by me (1pt. min.). @ -None done What testing was considered but not performed or refused? (CT, X-rays, U/S, labs)? Why? @ -None What meds were considered but not given or refused? Why? @ -Adenosine considered however not needed secondary to carotid massage resolving arrhythmia Did you discuss the management of the patient with other professionals (professionals i.e. [employer], [employer]ER, lab, RT, psych nurse, social worker clinical, lawyers, teacher, tactical debriefer officer, patient case coordinator)? Give summary @ -No Was smoking cessation discussed for >3mins.? @ -No Was critical care preformed (if so, how long)? @ -Yes 31 minutes critical care Were there social determinants of health that impacted care today? How? (Homelessness, low income, unemployed, alcoholism, drug addiction, transportation, low edu. Level, literacy, decrease access to med. care, [facility], rehab)? @ -No Was there de-escalation of care discussed even if they declined (Discuss DNR or withdrawal of care, Hospice)? DNR status @ -No What co-morbidities impacted this encounter? (DM, HTN, Smoking, COPD, CAD, Cancer, CVA, ARF, Chemo, Hep., AIDS, mental health diagnosis, sleep apnea, morbid obesity)? @ -None Was patient admitted / discharged? Hospital course, mention meds given and route, prescriptions, significant lab abnormalities, going to OR and other pertinent info. @ -Dysrhythmia resolved with carotid massage. Patient reevaluated. Patient updated. Patient remains in sinus rhythm and symptom-free. Undiagnosed new problem with uncertain prognosis? @ -No Drug Therapy requiring intensive monitoring for toxicity (Heparin, Nitro, Insulin, Cardizem)? @ -No Were any procedures done? @ -Carotid massage Diagnosis/symptom? @ -SVT Acute, or Chronic, or Acute on Chronic? @ -Acute Uncomplicated (without systemic symptoms) or Complicated (systemic symptoms)? @ -Uncomplicated Side effects of treatment? @ -No Exacerbation, Progression, or Severe Exacerbation? @ -No Poses a threat to life or bodily function? How? (Chest pain, USA, CT, pneumonia, PE, COPD, DKA, ARF, appy, cholecystitis, CVA, Diverticulitis, Homicidal, Suicidal, threat to staff... and all critical care pts) @ -Potential threat to cardiac function if dysrhythmia/tachycardia remained - Lab Data Result diagrams: 11/14/22 09:12 11/14/22 09:12 Lab Results 11/14/22 11/14/22 11/14/22 Range/Units 09:12 09:12 09:12 WBC 10.5 (3.8-10.6) k/uL RBC 4.58 (3.80-5.40) m/uL Hgb 14.1 (11.4-16.0) gm/dL Hct 40.7 (34.0-46.0) % MCV 88.8 (80.0-100.0) fL MCH 30.8 (25.0-35.0) pg MCHC 34.7 (31.0-37.0) g/dL RDW 12.9 (11.5-15.5) % Plt Count 288 (150-450) k/uL MPV 7.5 Neutrophils % 60 % Lymphocytes % 31 % Monocytes % 4 % Eosinophils % 1 % Basophils % 1 % Neutrophils # 6.3 (1.3-7.7) k/uL Lymphocytes # 3.2 (1.0-4.8) k/uL Monocytes # 0.5 (0-1.0) k/uL Eosinophils # 0.1 (0-0.7) k/uL Basophils # 0.1 (0-0.2) k/uL PT 10.0 (9.0-12.0) sec INR 0.9 (<1.2) APTT 23.9 (22.0-30.0) sec Sodium 138 (137-145) mmol/L Potassium 4.0 (3.5-5.1) mmol/L Chloride 106 (98-107) mmol/L Carbon Dioxide 24 (22-30) mmol/L Anion Gap 8 mmol/L BUN 13 (7-17) mg/dL Creatinine 0.57 (0.52-1.04) mg/dL Est GFR (CKD-EPI)AfAm >90 (>60 ml/min/1.73 sqM) Est GFR (CKD-EPI)NonAf >90 (>60 ml/min/1.73 sqM) Glucose 108 H (74-99) mg/dL Calcium 9.1 (8.4-10.2) mg/dL Magnesium 1.8 (1.6-2.3) mg/dL Total Bilirubin 0.4 (0.2-1.3) mg/dL AST 29 (14-36) U/L ALT 37 H (4-34) U/L Alkaline Phosphatase 64 (38-126) U/L Troponin I (0.000-0.034) ng/mL Total Protein 7.3 (6.3-8.2) g/dL Albumin 4.3 (3.5-5.0) g/dL TSH 1.020 (0.465-4.680) mIU/L Free T4 0.93 (0.78-2.19) ng/dL Free T3 pg/mL 4.1 (2.8-5.3) pg/ml 11/14/22 Range/Units 09:12 WBC (3.8-10.6) k/uL RBC (3.80-5.40) m/uL Hgb (11.4-16.0) gm/dL Hct (34.0-46.0) % MCV (80.0-100.0) fL MCH (25.0-35.0) pg MCHC (31.0-37.0) g/dL RDW (11.5-15.5) % Plt Count (150-450) k/uL MPV Neutrophils % % Lymphocytes % % Monocytes % % Eosinophils % % Basophils % % Neutrophils # (1.3-7.7) k/uL Lymphocytes # (1.0-4.8) k/uL Monocytes # (0-1.0) k/uL Eosinophils # (0-0.7) k/uL Basophils # (0-0.2) k/uL PT (9.0-12.0) sec INR (<1.2) APTT (22.0-30.0) sec Sodium (137-145) mmol/L Potassium (3.5-5.1) mmol/L Chloride (98-107) mmol/L Carbon Dioxide (22-30) mmol/L Anion Gap mmol/L BUN (7-17) mg/dL Creatinine (0.52-1.04) mg/dL Est GFR (CKD-EPI)AfAm (>60 ml/min/1.73 sqM) Est GFR (CKD-EPI)NonAf (>60 ml/min/1.73 sqM) Glucose (74-99) mg/dL Calcium (8.4-10.2) mg/dL Magnesium (1.6-2.3) mg/dL Total Bilirubin (0.2-1.3) mg/dL AST (14-36) U/L ALT (4-34) U/L Alkaline Phosphatase (38-126) U/L Troponin I <0.012 (0.000-0.034) ng/mL Total Protein (6.3-8.2) g/dL Albumin (3.5-5.0) g/dL TSH (0.465-4.680) mIU/L Free T4 (0.78-2.19) ng/dL Free T3 pg/mL (2.8-5.3) pg/ml Disposition Clinical Impression: Supraventricular tachycardia Disposition: HOME SELF-CARE Condition: Stable Instructions (If sedation given, give patient instructions): Supraventricular Tachycardia (ED) Additional Instructions: Please do follow-up with your juke box mechanic in the next couple days for recheck. Have juke box mechanic reviewed EKG report from today. Please also follow-up with your primary care physician. Please also have primary care physician review chest x-ray. He will need monitoring for nodule. Return for increased heart rate, chest pain or difficulty breathing, worsening symptoms or other concerns. Is patient prescribed a controlled substance at d/c from ED?: No Referrals: Jaylon Francisco DO [Primary Care Provider] - 1-2 days Time of Disposition: 10:24
[2022-11-14 09:29] LABS: Basophils # (A) 0.1 k/uL (0-0.2); Basophils % (A) 1 %; Eosinophils # (A) 0.1 k/uL (0-0.7); Eosinophils % (A) 1 %; HCT 40.7 % (34.0-46.0); HGB 14.1 gm/dL (11.4-16.0); Lymphocytes # (A) 3.2 k/uL (1.0-4.8); Lymphocytes % (A) 31 %; MCH 30.8 pg (25.0-35.0); MCHC 34.7 g/dL (31.0-37.0); MCV 88.8 fL (80.0-100.0); Mean Platelet Volume 7.5; Monocytes # (A) 0.5 k/uL (0-1.0); Monocytes % (A) 4 %; Neutrophils # (A) 6.3 k/uL (1.3-7.7); Neutrophils % (A) 60 %; Platelet Count 288 k/uL (150-450); RBC 4.58 m/uL (3.80-5.40); RDW 12.9 % (11.5-15.5); WBC 10.5 k/uL (3.8-10.6)
[2022-11-14 09:33] VITALS: BP 124/79
[2022-11-14 09:38] LABS: ALT 37 U/L (4-34); AST 29 U/L (14-36); African American GFR (CKD) >90 (>60 ml/min/1.73 sqM); Albumin 4.3 g/dL (3.5-5.0); Alkaline Phosphatase 64 U/L (38-126); Anion Gap 8 mmol/L; Blood Urea Nitrogen 13 mg/dL (7-17); Calcium 9.1 mg/dL (8.4-10.2); Carbon Dioxide 24 mmol/L (22-30); Chloride 106 mmol/L (98-107); Glucose 108 mg/dL (74-99); Magnesium 1.8 mg/dL (1.6-2.3); Non-African American GFR(CKD) >90 (>60 ml/min/1.73 sqM); Sodium 138 mmol/L (137-145); Total Bilirubin 0.4 mg/dL (0.2-1.3); Total Protein 7.3 g/dL (6.3-8.2)
--- NOTE | 2022-11-14 09:44 | XR ---
EXAMINATION TYPE: XR chest 2V DATE OF EXAM: 11/14/2022 COMPARISON: 11/29/2021 TECHNIQUE: PA and lateral views submitted. HISTORY: Dysrhythmia FINDINGS: The lungs are clear and there is no pneumothorax, pleural effusion, or focal pneumonia. Heart size normal and no overt failure. Post surgical changes overlying the cervical spine hypertrophic and dege nerative changes spine. Stable 7 mm nodular density overlying the heart border on the lateral view un changed prior exam. IMPRESSION: 1. No acute process. Probable 7 mm pulmonary nodule overlying the cardiac border on the lateral view similar to the prior exam be followed with short-term follow-up CT of the chest
[2022-11-14 09:55] LABS: T4, Free (Free Thyroxine) 0.93 ng/dL (0.78-2.19)
[2022-11-14 10:04] LABS: INR 0.9 (<1.2); Partial Thromboplastin Time 23.9 sec (22.0-30.0)
[2022-11-14 10:30] VITALS: PULSE 71; RESP 17
[2022-11-14 10:31] VITALS: TEMP 98.5
== END 2022-11-14 10:40 | disposition home or self-care (01) ==
LOC: EC 08:45
DX: I47.1 Supraventricular tachycardia (principal); F17.200 Nicotine dependence, unspecified, uncomplicated; Z88.0 Allergy status to penicillin
CPT/HCPCS: 36415; 71046; 80053; 83735; 84439; 84443; 84481; 84484; 85025; 85610; 85730; 93005; 99285